=== PATIENT | female | born 1985 ===

== ENCOUNTER → 2017-11-14 09:08 | Outpatient (CLI) | payer OTHER ==
[~2017-11-14 09:08] MED LIST: ANTIVERT25 M1 PO; CLARINEX5 MG/TAB PO; FLOVENT 110MCG7.9 GM IH; PREVENT SOFTGEL1 CAP; PROVENTIL3 ML/2.5 M IH; ZYNCOF 20-400120 ML PO
== END | disposition home or self-care (01) ==
LOC: LAB 09:08
DX: E03.8 Other specified hypothyroidism (principal); I10 Essential (primary) hypertension; E11.9 Type 2 diabetes mellitus without complications; E78.2 Mixed hyperlipidemia; M81.0 Age-related osteoporosis without current pathological fracture

== ENCOUNTER 2019-04-01 14:11 | Outpatient (CLI) | payer OTHER | END 2019-04-01 14:22 | disposition home or self-care (01) | LOC: NUCLEAR 14:11 | DX: I87.2 Venous insufficiency (chronic) (peripheral) (principal) ==

== ENCOUNTER 2021-06-22 13:32 | Outpatient (CLI) | payer OTHER | END 2021-06-22 15:25 | disposition home or self-care (01) | LOC: PRENATAL 13:32 | PROVIDERS: ATTEND Obstetrics & Gynecology Maternal & Fetal Medicine | DX: O09.512 Supervision of elderly primigravida, second trimester (principal); O35.0XX0 Maternal care for (suspected) central nervous system malformation in fetus, not applicable or unspecified; O35.3XX0 Maternal care for (suspected) damage to fetus from viral disease in mother, not applicable or unspecified; O34.10 Maternal care for benign tumor of corpus uteri, unspecified trimester ==